=== PATIENT | female | born 1990 | race African-American/Black ===

== ENCOUNTER 2021-03-26 18:29 | Inpatient (IN) | payer BC ==
[~2021-03-26] VITALS: Ht 154.9 cm; Wt 122.9 kg
[2021-03-26 18:35] VITALS: BP 179/106
[2021-03-26 18:57] LABS: ABSOLUTE NEUTROPHILS 7.8 thou/uL (1.4-8.2); BASOPHILS 0.9 % (0.0-2.0); EOSINOPHILS 0.2 % (0.0-3.0); HEMATOCRIT 39.6 % (37.0-47.0); HEMOGLOBIN 13.3 gm/dL (12.0-15.0); LYMPHOCYTES 23.3 % (24.0-44.0); MCH 29.7 pg (26.0-34.0); MCHC 33.5 g/dL (28.0-37.0); MCV 88.4 fL (80.0-100.0); PLATELET COUNT 382 thou/uL (150-400); POLYS 72.6 % (36.0-66.0); RBC 4.48 mil/uL (4.20-5.00); RDW 13.6 % (10.5-14.5); WBC 10.8 thou/uL (4.0-11.0)
[2021-03-26 19:04] LABS: ANION GAP 15 mmol/L (7-16); BUN 16 mg/dL (7-18); CALCIUM 9.4 mg/dL (8.5-10.1); CHLORIDE 103 mmol/L (98-107); CO2 21 mmol/L (21-32); CREATININE 1.1 mg/dL (0.6-1.0); GLUCOSE 142 mg/dL (74-106); POTASSIUM 3.2 mmol/L (3.5-5.1); SODIUM 139 mmol/L (136-145)
[2021-03-26 19:14] LABS: ALBUMIN 3.6 g/dL (3.4-5.0); SGOT 19 U/L (15-37); SGPT 35 U/L (14-59); TOTAL BILIRUBIN 0.2 mg/dL (0.2-1.0); TOTAL PROTEIN 7.7 g/dL (6.4-8.2); TROPONIN-I <0.06 ng/mL (<0.06)
[2021-03-26] MEDS ORDERED: PROAIR HFA8.5 GM INH (21:36)
[2021-03-26] MEDS ORDERED: PREDNISONE50 MG PO (21:36)
[2021-03-26 21:38] VITALS: BP 134/84
--- NOTE | 2021-03-27 00:09 | NUR ---
PT ADMITTED FROM HOME THROUGH ED. PT HAD AT BEDSIDE FOR INITIAL ASSESSMENT, SHE WAS GOING TO LEAVE ED PER ER NURSE DUE TO ANXIETY AOBUT ADMISSION. PT LEFT [facility] WEDNESDAY SHE STATED THEY WANTED TO ADMIT HER AT THAT TIME. PT HAS HISTORY OF ASTHMA. PT HAD BEEN USING ALBUTEROL AND ORAL STEROIDS AT HOME BUT HER SOA AND WHEEZING CONTINUED TO WORSEN. PT CALLED EMS TODAY. PT IS A SMOKER. PT VERBALIZED WANTING TO QUIT. LUNGS WITH WHEEZES, INDEP, TREMORS IN ARMS FROM NEBULIZER TREATMENTS. PT HAS HAD A TOTAL OF 6 THIS EVENING. PT PROVIDED DINNER TRAY. IVF INTACT. PT VERBALIZED UNDERSTANDING TO CALL FOR ASSISTANCE WITH AMBULATION IF NEEDED.
[2021-03-27 03:37] LABS: ABSOLUTE NEUTROPHILS 9.1 thou/uL (1.4-8.2); HEMOGLOBIN 12.6 gm/dL (12.0-15.0); LYMPHOCYTES 11.4 % (24.0-44.0); MCH 29.6 pg (26.0-34.0); MCHC 33.1 g/dL (28.0-37.0); MCV 89.3 fL (80.0-100.0); MONOCYTES 1.8 % (1.0-8.0); PLATELET COUNT 350 thou/uL (150-400); POLYS 86.8 % (36.0-66.0); RBC 4.25 mil/uL (4.20-5.00); RDW 13.5 % (10.5-14.5); WBC 10.5 thou/uL (4.0-11.0)
[2021-03-27 03:43] LABS: CALCIUM 8.5 mg/dL (8.5-10.1); CREATININE 0.9 mg/dL (0.6-1.0); MAGNESIUM 2.3 mg/dL (1.8-2.4)
[2021-03-27 03:48] VITALS: BP 134/89
[2021-03-27 04:18] LABS: POTASSIUM 4.2 mmol/L (3.5-5.1)
[2021-03-27 05:40] VITALS: BP 188/91
--- NOTE | 2021-03-27 06:15 | NUR ---
PT REPORTING CONTINUED HEADACHE, PRN PROVIDED.
[2021-03-27 07:35] VITALS: BP 142/93
--- NOTE | 2021-03-27 08:13 | EKG ---
[address] [address] ELECTROCARDIOGRAM REPORT Name: ADAM MENDEZ Room #: 353-P ADM IN M.R.#: [id number] Admission: 03/26/21 Attend Phys: Issac Lugo MD Discharge: Date of : 88 Report #: [id number] [facility] ED Test Date: 2021-03-26 Test Time: 21:04:28 Pat Name: ADAMJORGE L DUNLAPLONNIE Department: Room: [facility] Gender: F [employer] Fitter: kassandra martínez : 1990 Requested By: Kanika Dean Order Number: [id number] MD: Dao Hampton Measurements Intervals [place] Rate: 93 P: 57 MT: 173 QRS: 42 QRSD: 91 T: 27 QT: 357 QTc: 445 Interpretive Statements Sinus rhythm Borderline T abnormalities, anterior leads No previous ECG available for comparison Electronically Signed On 03-27-2021 8:13:10 CDT by Dao Hampton [email or web address] <ELECTRONICALLY SIGNED> By: Dao Hampton MD 03/27/21 08 03 03 Dao Hampton MD /EKTA
--- NOTE | 2021-03-27 10:26 | NUR ---
Nutrition: RD received consult related to "weight". Pt with BMI 51, extreme class 3 obesity. Admitted with SOA, PMH asthma. Pt c/o migraine during visit and needing additional medication. Offered materials related to weight loss, lifestyle modifications and pt accepted, will read through when feels better. RD left materials and RD name/# at bedside.
--- NOTE | 2021-03-27 13:22 | NUR ---
ASSESSMENT: CM REVIEWED CHART AND MET WITH PATIENT AT THE BEDSIDE. PT IS ALERT AND ORIENTED X4. PT REPORTS SHE LIVES AT HOME WITH HER FAMILY. PT WAS ADMITTED DUE TO ASTHMA EXACERBATION AND IS ON LEVAQUIN AND SOLUMEDROL. PT RECENTLY JUST LEFT [facility] THIS PAST WEDNESDAY. PT REPORTS BEING FULLY INDEPENDENT WITH ADLS AND AMBULATION. PT DENIES HAVING HH. PT REPORTS SHE HAS NO PCP. CM ENCOURGAED PATIENT TO CONTACT THE NUMBER ON HER INSRUANCE CARD TO MAKE SURE SHE IS ABLE TO FIND A PROVIDER WHO IS IN NETWORK. CM ALSO PROVIDED HER WITH A LIST OF PCP AT [facility]. CM DISCUSSED ROLE. PT DOES NOT ANTICIPATE HAVING ANY NEEDS FROM CM. CM WILL CONTINUE TO FOLLOW.
[2021-03-27] MEDS ORDERED: BENZONATATE100 MG PO (15:38)
[2021-03-27] MEDS ORDERED: PREDNISONE 20 M20 M1 PO (15:38)
[2021-03-27] MEDS ORDERED: IBUPROFEN 200200 M1 PO (15:38)
[2021-03-27] MEDS ORDERED: ACETAMINOPHEN325 M1 PO (15:38)
[2021-03-27] MEDS ORDERED: SINGULAIR 10 MG10 M1 PO (15:38)
[2021-03-27] MEDS ORDERED: MUCINEX600 MG PO (15:38)
[2021-03-27] MEDS ORDERED: LEVALBUTER1.25 MG/0. INH (15:38)
[2021-03-27] MEDS ORDERED: PROTONIX 20 MG20 M1 PO (15:38)
--- NOTE | 2021-03-27 15:53 | NUR ---
assumed care of pt at 0700. pt aox4 no acute distress. complains of migraine/headache - no relief with tylenol. physician notified - toradol ordered for better relief. up ad sukhi w/o difficulty. maintains spo2 on room air. anticipate d/c later today.
[2021-03-27 16:07] VITALS: BP 142/93
[2021-03-28 00:06] LABS: GLYCOHEMOGLOBIN (HGB A1C) 5.8 % (4.8-5.6)
== END 2021-03-27 17:18 | disposition home or self-care (01) | DRG 193 ==
LOC: ER 18:29 → 3W 21:41 → EROBS 21:41 → 3W 21:56
PROVIDERS: Nurse Practitioner; Physician Assistant; ADMIT Internal Medicine; ATTEND Internal Medicine
DX: J18.9 Pneumonia, unspecified organism (principal); J96.01 Acute respiratory failure with hypoxia; J96.02 Acute respiratory failure with hypercapnia; J45.901 Unspecified asthma with (acute) exacerbation; Z68.43 Body mass index [BMI] 50.0-59.9, adult; F17.210 Nicotine dependence, cigarettes, uncomplicated; E87.6 Hypokalemia; Z20.822 Contact with and (suspected) exposure to COVID-19; E66.01 Morbid (severe) obesity due to excess calories; T38.0X5A Adverse effect of glucocorticoids and synthetic analogues, initial encounter; R73.9 Hyperglycemia, unspecified; I10 Essential (primary) hypertension; K21.9 Gastro-esophageal reflux disease without esophagitis; Y92.89 Other specified places as the place of occurrence of the external cause
CPT/HCPCS: 10879

== ENCOUNTER 2021-11-20 13:37 | Emergency (ER) | payer OTHER ==
[~2021-11-20] VITALS: Ht 157.5 cm; Wt 90.7 kg
[~2021-11-20 13:37] MED LIST: ACETAMINOPHEN325 M1 PO; BENZONATATE100 MG PO; IBUPROFEN 200200 M1 PO; LEVALBUTER1.25 MG/0. INH; MUCINEX600 MG PO; PREDNISONE 20 M20 M1 PO; PREDNISONE50 MG PO; PROAIR HFA8.5 GM INH; PROTONIX 20 MG20 M1 PO; SINGULAIR 10 MG10 M1 PO
[2021-11-20 13:38] VITALS: BP 134/84
== END 2021-11-20 15:50 | disposition home or self-care (01) ==
LOC: ER 13:37
DX: U07.1 COVID-19 (principal); J45.909 Unspecified asthma, uncomplicated; F32.9 Major depressive disorder, single episode, unspecified; Z79.899 Other long term (current) drug therapy; Z79.891 Long term (current) use of opiate analgesic